=== PATIENT | female | born 1945 | race Caucasian/White ===

== ENCOUNTER 2019-10-07 13:41 | Emergency (ER) | payer OTHER ==
[~2019-10-07] VITALS: Ht 147.3 cm; Wt 52.3 kg
[~2019-10-07 13:41] MED LIST: AMLO2.5T4 PO; AMOX250C4 PO; ASPI-1111 PO; BACL10TA PO; METF-960 PO; TEMA7.5C17 PO
[2019-10-07] MEDS ORDERED: PREG50 PO (14:08)
[2019-10-07] MEDS ORDERED: FLUT16H NASAL (14:08)
[2019-10-07] MEDS ORDERED: BUDE1AMP IH (14:08)
[2019-10-07] MEDS ORDERED: ALBU8HFA IH (14:08)
[2019-10-07] MEDS ORDERED: TraMADol HCL 50 MG TABLET PO ONE (14:15)
[2019-10-07 15:57] VITALS: BP 154/71
== END 2019-10-07 16:00 | disposition home or self-care (01) ==
LOC: EMS 13:43
DX: J40 Bronchitis, not specified as acute or chronic (principal); E11.9 Type 2 diabetes mellitus without complications; I10 Essential (primary) hypertension; Z79.84 Long term (current) use of oral hypoglycemic drugs; Z79.82 Long term (current) use of aspirin; Z88.6 Allergy status to analgesic agent; Z88.0 Allergy status to penicillin; Z88.8 Allergy status to other drugs, medicaments and biological substances

== ENCOUNTER 2024-06-16 08:35 | Emergency (ER) | payer OTHER ==
[~2024-06-16] VITALS: Ht 147.3 cm; Wt 54.5 kg
[~2024-06-16 08:35] MED LIST changes: +ALBU18HF12 IH; -AMLO2.5T4 PO; +AMLO2.5T96 PO; -AMOX250C4 PO; -ASPI-1111 PO; +ASPI-1444 PO; +BUDE1AMP IH; +FLUT16SP NASAL; +METF-1211 PO; -METF-960 PO; +PREG50 PO; -TEMA7.5C17 PO; +TEMA7.5C26 PO
[2024-06-16 08:58] VITALS: TEMP 97.9
[2024-06-16] MEDS: KETOROLAC TROMETHAMINE 30 MG/ML VIAL IM ONE (09:10)
[2024-06-16] MEDS: ONDANSETRON HCL 4 MG/2 ML VIAL IM ONE (09:10)
[2024-06-16] MEDS: MORPHINE SULFATE 4 MG/ML SYRINGE IM ONE (09:10)
[2024-06-16] MEDS ORDERED: KETOROLAC TROMETHAMINE 30 MG/ML VIAL ONE (09:13)
[2024-06-16] MEDS ORDERED: MORPHINE SULFATE 4 MG/ML SYRINGE ONE (09:13)
[2024-06-16] MEDS ORDERED: ONDANSETRON HCL 4 MG/2 ML VIAL ONE (09:13)
[2024-06-16] MEDS ORDERED: ACET-2080 PO (10:48)
[2024-06-16 11:00] VITALS: BP 134/69; PULSE 74; RESP 16; O2SAT 99
== END 2024-06-16 12:04 | disposition home or self-care (01) ==
LOC: EMS 08:37
DX: S82.61XA Displaced fracture of lateral malleolus of right fibula, initial encounter for closed fracture (principal); G89.29 Other chronic pain; M54.40 Lumbago with sciatica, unspecified side; E11.9 Type 2 diabetes mellitus without complications; I10 Essential (primary) hypertension; Z79.51 Long term (current) use of inhaled steroids; Z79.82 Long term (current) use of aspirin; Z79.84 Long term (current) use of oral hypoglycemic drugs; Z79.899 Other long term (current) drug therapy; Z88.0 Allergy status to penicillin; Z88.1 Allergy status to other antibiotic agents; Z88.5 Allergy status to narcotic agent; Z88.6 Allergy status to analgesic agent; Z90.49 Acquired absence of other specified parts of digestive tract
CPT/HCPCS: 99284; 29540; 73610; 73630; 82962; 96372; J1885; J2270; J2405